=== PATIENT | female | born 1955 | race Caucasian/White ===

== ENCOUNTER → 2018-06-07 | Outpatient (CLI) | payer BC ==
[~2018-06-07] MED LIST: ATROVENT I0.2 MG/1 M IH; BENTYL 20MG TAB20 MG PO; BETAPACE 80MG80 MG PO; CLOTRIMAZOLE TR10 MG MM; CLOTRIMAZOLE10 MG MM; DEMEROL 50M50 MG/TAB PO; DIAZIDE; DILAUDID 2MG TAB2 MG PO; HALCION 0.0.125 MG/T PO; KETOROLAC10 MG PO; LIDODERM PATCH TP; LIVALO2 MG PO; LOMOTIL TAB 01 UDTAB PO; LYRICA50 MG PO; MAXZIDE-25MG TA1 TAB PO; MOTRIN 800800 MG/TAB PO; PAMELOR 25MG25 MG PO; PATANOL OPHTHALM5 ML OU; PREDNISONE20 MG PO; PREMARIN 0.60.625 MG PO; PROTONIX 40MG T40 MG PO; SENOKOT8.6 MG PO; SIMVASTATIN20 MG PO; SYNTHROID0.2 M1 PO; ULTRAM 50MG TAB50 MG; VENTOLIN0.09 MG IH; VERAMYST27.5 MCG/A NS; VITAMIN C500 MG PO; XOPENEX 0.0.63 MG/3 IH; XOPENEX0.63 MG/3 IH; ZYRTEC 10MG; ZYRTEC10 MG PO; [UNRECOGNIZED DRUG - OTHER] PO
== END ==
LOC: MC.RAD 10:00
DX: Z12.31 Encounter for screening mammogram for malignant neoplasm of breast (principal)

== ENCOUNTER → 2019-07-26 | Outpatient (CLI) | payer BC | LOC: MC.RAD 14:18 | DX: Z12.31 Encounter for screening mammogram for malignant neoplasm of breast (principal) ==

== ENCOUNTER → 2020-09-10 | Outpatient (CLI) | payer BC | LOC: MC.RAD 14:38 | DX: Z12.31 Encounter for screening mammogram for malignant neoplasm of breast (principal) ==

== ENCOUNTER → 2022-08-16 | Outpatient (CLI) | payer MEDICARE, OTHER | LOC: MC.RAD 10:42 | DX: Z12.31 Encounter for screening mammogram for malignant neoplasm of breast (principal) ==